=== PATIENT | female | born 1985 | race Caucasian/White ===

== ENCOUNTER 2022-06-21 08:47 | Outpatient (CLI) | payer BC, SELFPAY ==
[2022-06-21 08:59] VITALS: BP 122/60; PULSE 76
[2022-06-21 09:05] VITALS: BMI 23.6
[2022-06-21 10:51] VITALS: BP 102/61; PULSE 70; TEMP 36.3
--- NOTE | 2022-06-25 07:43 | OB.TRI.NOTE ---
HPI - General General Date of Admission: 06/25/22 Date of Service: 06/21/22 Chief Complaint: vaginal bleeding in HPI Narrative KAILYN NURYS WEI, is a 36 F who presents Maternal Data Information Final LAWR[place]: 08[birth year]14[birth year]22 Gestational age: 32 2/7 PFSH PFSH Home Medications aspirin 81 mg chewable tablet 81 mg PO DAILY pre e prophyllaxis 06/21/22 [History Last Taken 06/20/22 22:00 81 mg] buspirone 10 mg tablet 10 mg PO BID anxiety 06/21/22 [History Last Taken 06/21/22 08:00 10 mg] Allergy/AdvReac Type Severity Reaction Status Date / Time clarithromycin [From Biaxin] Allergy Rash Verified 06/21/22 09:06 NST FHR Rate Baby A Baseline: 130 Variability:: Moderate Accelerations:: 15 x 15 Decelerations:: None NST Reactive:: Yes FHR Category:: Category I Uterine Activity:: no regular ctxs Assessment & Plan (1) 32 weeks gestation of : (2) Vaginal bleeding during :
== END 2022-06-21 11:03 | disposition home or self-care (01) ==
LOC: WPOUT 08:51 → WP 08:52
PROVIDERS: Visit Provider Obstetrics & Gynecology
DX: O46.93 Antepartum hemorrhage, unspecified, third trimester (principal); Z3A.32 32 weeks gestation of pregnancy; Z79.2 Long term (current) use of antibiotics; Z79.82 Long term (current) use of aspirin
CPT/HCPCS: 59025; 59050; 99218; G0378